=== PATIENT | female | born 1950 | race Caucasian/White ===

== ENCOUNTER → 2017-12-22 | Outpatient (CLI) | payer OTHER, BC ==
[~2017-12-22] MED LIST: ALLEGRA60 MG PO; ATROVENT30 ML NS; BETIMOL 0.0.25 %/11 OP; CARBAMAZEPINE200 M2 PO; GABAPENTIN100 MG PO; IBUPROFEN 200200 M1 PO; LITHIUM CARBON300 M6 PO; MULTIVITAMINS1 EAC7 PO; NASONEX17 GM NS; NEURONTIN 300300 M1 PO; OMEPRAZOLE40 MG PO; PROPRANOLOL 20M20 M1 PO; SALINE NASAL; SERTRALINE HCL100 MG PO; SINGULAIR 10 MG10 M1 PO
== END ==
LOC: HYPER 07:00
DX: L89.152 Pressure ulcer of sacral region, stage 2 (principal); R60.0 Localized edema; R21 Rash and other nonspecific skin eruption; F31.9 Bipolar disorder, unspecified; K21.9 Gastro-esophageal reflux disease without esophagitis; I10 Essential (primary) hypertension; M19.90 Unspecified osteoarthritis, unspecified site; Z12.83 Encounter for screening for malignant neoplasm of skin

== ENCOUNTER → 2018-01-12 | Outpatient (CLI) | payer OTHER, BC | LOC: HYPER 06:48 | DX: L89.152 Pressure ulcer of sacral region, stage 2 (principal); L84 Corns and callosities; I10 Essential (primary) hypertension; R21 Rash and other nonspecific skin eruption; L03.115 Cellulitis of right lower limb; K21.9 Gastro-esophageal reflux disease without esophagitis; M19.90 Unspecified osteoarthritis, unspecified site; G62.9 Polyneuropathy, unspecified; F31.9 Bipolar disorder, unspecified ==

== ENCOUNTER 2018-09-27 06:50 | Inpatient (IN) | payer OTHER, BC ==
[~2018-09-27] VITALS: Ht 167.6 cm; Wt 53.5 kg
[2018-09-27 12:36] VITALS: BP 152/74
[2018-09-27 13:55] LABS: ABSOLUTE NEUTROPHILS 3.3 thou/uL (1.4-8.2); BASOPHILS 1.2 % (0.0-2.0); EOSINOPHILS 0.9 % (0.0-3.0); HEMATOCRIT 32.6 % (37.0-47.0); HEMOGLOBIN 10.9 gm/dL (12.0-15.0); LYMPHOCYTES 25.8 % (24.0-44.0); MCH 31.8 pg (26.0-34.0); MCHC 33.3 g/dL (28.0-37.0); MCV 95.6 fL (80.0-100.0); MONOCYTES 7.6 % (1.0-8.0); PLATELET COUNT 222 thou/uL (150-400); POLYS 64.5 % (36.0-66.0); RBC 3.41 mil/uL (4.20-5.00); RDW 14.3 % (10.5-14.5); WBC 5.1 thou/uL (4.0-11.0)
[2018-09-27 14:16] LABS: ALBUMIN 3.4 g/dL (3.4-5.0); CALCIUM 9.1 mg/dL (8.5-10.1); CREATININE 1.1 mg/dL (0.6-1.0); TOTAL BILIRUBIN 0.4 mg/dL (<0.1-1.0); TOTAL PROTEIN 6.4 g/dL (6.4-8.2)
[2018-09-27] MEDS ORDERED: LATANOPROST 0.2.5 ML OPHTHALMIC (14:37)
[2018-09-27] MEDS ORDERED: ALLEGRA ALLERG180 MG PO (14:40)
[2018-09-27] MEDS ORDERED: AYR SALINE NASA14 GM TOP (14:46)
[2018-09-27] MEDS ORDERED: DOXYCYCLINE 10100 MG PO (14:49)
--- NOTE | 2018-09-27 15:35 | NUR ---
WOUND FOLLOW UP: PT. WAS SEEN TODAY BY DR. CABRERA AND MYSELF. PT. WAS A DIRECT ADMIT FROM THE WOUND CLINIC IN RELATION TO CELLULITIS OF THE RIGHT LEG WITH A ULCERATION. RECOMMENDATIONS: AMMONIUM LACATE LOTION TO BILATERAL LOWER EXTREMTIYS GENTAMYCIN TO ULCERATION, THEN XEROFORM, ABD, SECURE WITH KERLIX AND DANIELLE FROM TOES TO KNEE, COMPLETE CARES DAILY AND PRN. PT. AND STAFF NURSE WERE INSTRUCTED ON PLAN OF CARE.
--- NOTE | 2018-09-27 19:32 | NUR ---
PT ARRIVED ON UNIT FROM PHYSICIAN'S OFFICE. PT ADMISSION COMPLETE, EXTERNAL CATHETER PLACED, ORDERS IMPLEMENTED. PT RESTING COMFORTABLY.
[2018-09-27 19:40] VITALS: BP 155/73
[2018-09-27 23:39] VITALS: BP 130/66
[2018-09-28 04:05] VITALS: BP 133/62
[2018-09-28 07:16] VITALS: BP 144/77
--- NOTE | 2018-09-28 07:38 | NUR ---
PATIENT WAS IN BEDREST DURING THE SHIFT AND SLEPT PART OF THE NIGHT. RIGHT LOWER EXTREMITY WOUND WAS PICTURED AND NEW DRESSING APPLIED. PATIENT DID NOT REQUEST ANY PAIN MEDS DURING THE SHIFT. PRN ATIVAN WAS USED X1 FOR ANXIETY. ABX TREATMENT CONTINUED. PATIENT IS AOX4 AND IS PROGRESSING TOWARDS DISCHARGE GOALS.
--- NOTE | 2018-09-28 13:55 | NUR ---
PT ADMITTED RELATED TO RIGHT LEG INFECTION. CM REVIEWED CHART AND SPOKE WITH CARE TEAM. CM MET WITH PT AND SISTER CHRISTINE AT BEDSIDE THIS DAY. PT IS A&O X4. CM ROLE INTRODUED. PT INDICATED SHE LIVES AT [facility]. SHE INDICATED THAT SHE HAD USED A MANUAL WHEELCHAIR TO ASSIST WITH MOBILITY. PT INDICATED SHE HAS A TRANSFER POLE THAT SHE USES TO GET IN AND OUT OF HER BED AND WC AND GRAB BARS THAT SHE USES IN THE BATHROOM. PT HAD BEEN ON SERVICE WITH [facility] AND THAT THEY WOULD LIKE TO USE THEM AGAIN UPON DC. CM TO FOLLOW INDICATED WITH DC PLANNING.
--- NOTE | 2018-09-28 14:46 | NUR ---
WOUND FOLLOW UP: PT. WAS SEEN TODAY BY DR. CABRERA AND MYSELF. PT. WOUND IS CLINICALLY BETTER TODAY. PT. IS PROGRESSING TOWARDS HEALING AT THIS TIME. RECOMMENDATIONS: CONTINUE WITH CURRENT PLAN OF CARE. PT. AND STAFF NURSE WERE INSTRUCTED ON PLAN OF CARE.
[2018-09-28 15:38] VITALS: BP 122/59
[2018-09-28 17:21] LABS: URINE BILIRUBIN NEGATIVE (Negative); URINE BLOOD NEGATIVE (Negative); URINE CLARITY CLEAR; URINE COLOR YELLOW; URINE GLUCOSE-RANDOM* NEGATIVE (Negative); URINE KETONES NEGATIVE (Negative); URINE LEUKOCYTES-REFLEX NEGATIVE (Negative); URINE NITRITE-REFLEX NEGATIVE (Negative); URINE PROTEIN (DIPSTICK) NEGATIVE (Negative); URINE UROBILINOGEN 0.2 E.U./dl (0.2-1.0)
--- NOTE | 2018-09-28 18:30 | NUR ---
PT STABLE THROUGHOUT SHIFT. PT HAD NO COMPLAINTS. FAMILY AT BEDSIDE. PT RESTING COMFORTABLY.
[2018-09-28 20:01] VITALS: BP 115/55
[2018-09-29 02:56] LABS: HEMATOCRIT 30.1 % (37.0-47.0); MCH 31.6 pg (26.0-34.0); MCHC 33.3 g/dL (28.0-37.0); MCV 94.8 fL (80.0-100.0); RBC 3.17 mil/uL (4.20-5.00); RDW 14.3 % (10.5-14.5); WBC 5.2 thou/uL (4.0-11.0)
[2018-09-29 03:04] LABS: CALCIUM 8.7 mg/dL (8.5-10.1); CREATININE 0.9 mg/dL (0.6-1.0); POTASSIUM 4.3 mmol/L (3.5-5.1)
[2018-09-29 04:17] VITALS: BP 130/66
[2018-09-29 07:34] VITALS: BP 142/64
--- NOTE | 2018-09-29 07:40 | NUR ---
PROGRESS PT ADMITTED FOR RIGHT LEG INFECTION, IV VANCOMYCIN CONTINUES DOSE ADJUSTED TO 100GMS FROM 750 MG DUE TO LOW TROUGH LEVEL. DENIES PAIN, ASSISTS IN REPOSITIONONG SELF, PT IS A PARAPLEGIC D/T TBI, HAS CONTRACTURES, ABLE TO PERFORM SOME TAKS INDEPENDENTLY BUT NEEDS ASSIST WITH MOST ADL'S. FEMALE CATHETER IN PLACE WORKING WELL. CONTINUE POC.
--- NOTE | 2018-09-29 13:18 | NUR ---
TOWARDS POC PT A/O X4, VSS, AFEBRILE, DENIES PAIN. WOUND CARE AND DRESSING DONE. NEW IV INSERTED. NO CONCERNS VOICED. WILL CONTINUE TO MONITOR.
[2018-09-29 14:32] VITALS: BP 129/58
--- NOTE | 2018-09-29 15:23 | NUR ---
DISCHARGE PLANNING. PATIENT RESIDES AT [facility]. DISCHARGE PLAN IS FOR PATIENT TO RETURN TO [facility]. UPDATED CLINICAL INFORMATION FAXED TO [facility]. [facility] NOTIFIED OF PATIENTS PLAN FOR DISCHARGE TOMORRW. FOLLOWING TO ASSIST WITH DISCHARGE NEEDS. UNIT CM/CASSIE AWARE.
--- NOTE | 2018-09-29 16:01 | NUR ---
WOUND FOLLOW UP: PT. WAS SEEN TODAY BY DR. CABRERA AND MYSELF. PT. WOUND IS CLINICALLY BETTER AND HER CELLULITIS TO HER RIGHT LEG IS GREATLY IMPROVED. RECOMMENDATIONS: CONTINUE WITH CURRENT PLAN OF CARE. PT. AND STAFF NURSE WERE INSTRUCTED ON PLAN OF CARE.
[2018-09-29 16:46] VITALS: BP 129/58
[2018-09-29 19:54] VITALS: BP 121/61
[2018-09-30 03:55] VITALS: BP 137/64
[2018-09-30 07:42] VITALS: BP 154/66
--- NOTE | 2018-09-30 07:58 | NUR ---
progress pt slept most of shift, denied pain. repositioned self with encouragement. iv antibiotics transitioned to po.iv sl continue poc.
[2018-09-30] MEDS ORDERED: LINEZOLID600 MG PO (12:25)
--- NOTE | 2018-09-30 12:48 | NUR ---
TOWARDS POC PT A/O X4, VSS, AFEBRILE, WOUND CARE AND DRESSING DONE. PT IS FOR DC. IV DC'D. DC ENVELOPE PROVIDED. PT IS WAITING FOR TRANSPO BACK TO FACILITY.
[2018-09-30 12:56] VITALS: BP 129/58
[2018-09-30 13:04] VITALS: BP 129/58
--- NOTE | 2018-09-30 13:19 | NUR ---
WOUND FOLLOW UP: PT. WAS SEEN TODAY BY DR. CABRERA AND MYSELF. PT. WOUND CARE WAS COMPLETED BY THE WOUND CARE TEAM. PT. WAS IN GOOD SPIRITS THIS VISIT AND DISCHARGE PLANNING WAS DISCUSSED. RECOMMENDATIONS: CONTINUE WITH CURRENT PLAN OF CARE. PT. AND STAFF NURSE WERE INSTRUCTED ON PLAN OF CARE.
--- NOTE | 2018-09-30 13:47 | NUR ---
CARE TEAM INDICATED THAT PT IS MEDICALLY STABLE TO DICHARGE CK TO [facility] THIS DAY. PT AND SISTER ARE AWARE AND AGREEABLE. PT'S SISTER SPOKE WITH THE FACILITY AND THEY ARE GOING TO PICK PT UP IN HER WHEELCHAIR WHICH SHE HAD HER AND TRANSPORT HER BACK TO THE FACILITY BEFORE 1400 THIS DAY. ORDERS ARE TO BE FAXED TO [facility]. CHART COPY MADE. REPORT TO BE CALLED TO . NO OTHER CM INTERVENTION INDICATED AT THIS TIME. CASE CLOSED.
--- NOTE | 2018-10-05 09:54 | HC ---
[facility] [place] [address] CONSULTATION Name: JENNIFERSveta ANIBAL Room #: 455-P [facility] IN M.R.#: [id number] Admission: 09/27/18 ������������������ Attend Phys: Romulo Arce MD Discharge: 09/30/18 ������������������ Date of : 48 Report #: [id number] THIS REPORT FOR: //name// CC: Maykel Ivey DATE OF SERVICE: 09/27/2018 CHIEF COMPLAINT: Traumatic wound and wound infection, cellulitis of the right lower extremity. HISTORY OF PRESENT ILLNESS: This is a 68-year-old female patient with whom I am familiar from evaluation in the clinic. She sustained a traumatic injury to her right leg a week or so ago. She has developed a cellulitis and wound infection with increasing drainage. She has been on antibiotics as an outpatient and has been worsening despite this. It was felt that more aggressive intervention for both wound care and antibiotic therapy was required, has been admitted to the hospital. She is complaining of pain in that area. PAST MEDICAL HISTORY: Positive for history of traumatic brain injury and some left-sided weakness that was related to a suicide attempt approximately 30 years ago. She has had previous hysterectomy and tonsillectomy. She is wheelchair bound. SOCIAL HISTORY: Negative for alcohol or tobacco use. FAMILY HISTORY: Noncontributory. MEDICATIONS: Include Advil, latanoprost, Cathie, [place] gel, doxycycline, carbamazepine and sertraline, as well as gabapentin. ALLERGIES: No known drug allergies. REVIEW OF SYSTEMS: CONSTITUTIONAL: The patient denies fever, chills or weight loss. NEUROLOGICAL: The patient has left-sided persistent weakness. No new weakness, numbness or tingling. EYES: The patient denies visual changes, redness or drainage. ENT: The patient denies earache, nasal drainage or sore throat. CARDIOVASCULAR: The patient denies chest pain, palpitations, diaphoresis. PULMONARY: The patient denies cough or shortness breath. GASTROINTESTINAL: The patient denies nausea, vomiting or abdominal pain. ORTHOPEDIC: The patient denies pain, swelling, drainage and wound on her right lower leg. [address] [address] CONSULTATION Name: Sveta RODRIGUEZ Room #: 455-P [facility] IN M.R.#: [id number] Admission: 09/27/18 ������������������ Attend Phys: Romulo Arce MD Discharge: 09/30/18 ������������������ Date of : 48 Report #: [id number] Other systems in a 14-point review of systems are negative. PHYSICAL EXAMINATION: VITAL SIGNS: At this time include temperature 36.9, pulse 64, respiratory rate 16, blood pressure 132/74. GENERAL: This is a chronically ill-appearing male patient who appears to be in minimal distress. HEENT: Head normocephalic. Nose and throat are clear. NECK: Demonstrates general weakness and she has difficulty holding her head up. LUNGS: Clear. HEART: Regular rhythm. ABDOMEN: Soft. Bowel sounds present. EXTREMITIES: demonstrate palpable distal pulses. She has 2+ edema to the extremities bilaterally. She has a traumatic wound to the right lateral lower leg. There is significant drainage from the wounds. Slight odor. There is significant lanny-wound cellulitis as well with moderate tenderness. NEUROLOGIC: The patient has left-sided weakness. Otherwise, alert and appropriate. LABORATORY DATA: Includes sodium 142, potassium 4.0, chloride 107, CO2 27, BUN 27, creatinine 1.1, glucose is 165. White blood cell count is 5.1 with a hemoglobin of 10.9, hematocrit 32.6. Sed rate is 4. IMAGING DATA: Ultrasound of the lower extremities demonstrates monophasic inflow waveforms to suggest pelvic or distal aortic stenosis. CLINICAL IMPRESSION: 1. Traumatic wound to the right lower extremity. 2. Wound infection and cellulitis, right lower extremity. 3. Possible peripheral arterial disease with iliac disease or distal aortic stenosis. RECOMMENDATIONS: At this point in time, the patient will be started on intravenous vancomycin empirically. We will recommend new culture and sensitivity. We will have to use topical gentamicin, Xeroform to the open area. Gentle compression with Kerlix and Sai wrap, as well as elevation. The patient has had vascular evaluation by Dr. Reynoso [facility] within the last year. We will try to obtain report of this. The patient and family do not wish to have further vascular intervention at this time. We will certainly continue to see how she does clinically. Should there be improvement in the wound and the infectious process with local care, we can hold off on any further vascular intervention. However, if there is no improvement or worsening of the [address] [address] CONSULTATION Name: Sveta RODRIGUEZ Room #: 455-P [facility] IN M.R.#: [id number] Admission: 09/27/18 ������������������ Attend Phys: Romulo Arce MD Discharge: 09/30/18 ������������������ Date of : 48 Report #: [id number] condition, we may need to intervene to establish better flow. I appreciate being asked to see her in consultation. ��������������������������������������������� <ELECTRONICALLY SIGNED> ���������������������������������������� By: Romulo Arce MD ��������������������������������������������� 10/05/18 [id number] Romulo Arce MD /nt
--- NOTE | 2018-10-06 11:56 | HC ---
[facility] [place] [address] CONSULTATION Name: JENNIFERSveta ANIBAL Room #: 455-P [facility] IN M.R.#: [id number] Admission: 09/27/18 ������������������ Attend Phys: Romulo Arce MD Discharge: 09/30/18 ������������������ Date of : 48 Report #: [id number] THIS REPORT FOR: //name// CC: Maykel Ivey DATE OF SERVICE: 09/29/2018 INFECTIOUS DISEASE CONSULTATION: REASON FOR CONSULTATION: I was asked to evaluate concerning right lower extremity wound infection. HISTORY OF PRESENT ILLNESS: The patient was a 68-year-old with paraparesis following traumatic brain injury. She has most left-sided weakness. She has been wheelchair bound for approximately 3 years. She is able to stand and pivot; however. Four weeks ago, had a laceration to her right calf having hit her leg on her wheelchair. About 10 days ago, developed increased pain, swelling and erythema. Treated initially with doxycycline when cultures revealed MRSA. Did not improve and now hospitalized for further care. Was admitted on 09/27/2018, placed on vancomycin. She has shown significant improvement. In addition, she has been treated for lymphedema. Arterial studies showed evidence of proximal inflow disease. This has not been further evaluated. No fever, chills or sweats. Overall, she feels better than her admit. REVIEW OF SYSTEMS: Denies any headache, cough, sputum, nausea, vomiting or diarrhea. A 10-point review was negative other than what is described above. ALLERGIES: No known medications. MEDICATIONS: As noted on her MAR including vancomycin. PAST MEDICAL HISTORY: Post-suicide attempt, anoxic brain injury 30 years ago. Left-sided weakness, peripheral edema with chronic lymphedema, mostly on the right, hysterectomy, breast lumpectomy, tonsillectomy. FAMILY HISTORY: Noncontributory. SOCIAL HISTORY: Nonsmoker, no significant alcohol intake. PHYSICAL EXAMINATION: VITAL SIGNS: She is afebrile and hemodynamically stable. GENERAL: She is alert and cooperative and pleasant, in no acute distress. She was very thin. [facility] [address] [place] [address] CONSULTATION Name: Sveta RODRIGUEZ Room #: 455-P [facility] IN M.R.#: [id number] Admission: 09/27/18 ������������������ Attend Phys: Romulo Arce MD Discharge: 09/30/18 ������������������ Date of : 48 Report #: [id number] EYES: Without scleral icterus. MOUTH: Without mucositis. NECK: Supple. LUNGS: Clear. HEART: Regular, without murmur. ABDOMEN: Soft and nontender with no hepatosplenomegaly or mass appreciated. EXTREMITIES: With no clubbing, cyanosis. 1+ edema in the right lower extremity with trace in the left. She had a wound to the lateral posterior aspect of her right calf with associated cellulitis. There was a shallow depth to the wound. There was no fluctuance. There was no mass appreciated. She had palpable pulses 1+ in her feet. Cranial nerves were intact. She had weakness in both lower extremities, greatest on the left. Sensation was intact. LABORATORY STUDIES: Hemoglobin 10, WBC 5, platelet count 199,000. Creatinine 0.9, alkaline phosphatase 133. Liver function test normal. Urinalysis negative. Sedimentation rate 4, CRP 7. Ultrasound of lower extremities as noted above. IMPRESSION: 1. A 68-year-old with paraparesis and methicillin-resistant Staphylococcus aureus right posterolateral calf wound infection and cellulitis, showing improvement with 3 days of IV antibiotic therapy and edema control. 2. Chronic lymphedema. 3. Peripheral vascular disease, suspect aortic or proximal vessel occlusive disease. 4. Traumatic brain injury. RECOMMENDATION: We will start Zyvox for 1 week. Continue with edema control and wound care. Check CT angio to further evaluate her arterial obstructive disease. ��������������������������������������������� <ELECTRONICALLY SIGNED> ���������������������������������������� By: José Antonio Becerra MD ��������������������������������������������� 10/06/18 [id number] [id number] José Antonio Becerra MD /nt
== END 2018-09-30 13:57 | disposition home health service (06) | DRG 603 ==
LOC: HYPER 06:50 → 4W 11:22 → HYPER 09-30 16:34
PROVIDERS: Hospitalist; Nurse Practitioner; ADMIT Hospitalist
DX: L03.115 Cellulitis of right lower limb (principal); G82.20 Paraplegia, unspecified; B95.62 Methicillin resistant Staphylococcus aureus infection as the cause of diseases classified elsewhere; I73.9 Peripheral vascular disease, unspecified; I89.0 Lymphedema, not elsewhere classified; F41.9 Anxiety disorder, unspecified; J30.2 Other seasonal allergic rhinitis; Z66 Do not resuscitate; Z87.820 Personal history of traumatic brain injury; Z90.710 Acquired absence of both cervix and uterus; Z79.899 Other long term (current) drug therapy
CPT/HCPCS: 10047

== ENCOUNTER → 2018-10-13 | Outpatient (CLI) | payer OTHER, BC ==
[~2018-10-13] MED LIST changes: +ALLEGRA ALLERG180 MG PO; +AYR SALINE NASA14 GM TOP; +DOXYCYCLINE 10100 MG PO; +LATANOPROST 0.2.5 ML OPHTHALMIC; +LINEZOLID600 MG PO
== END ==
LOC: HYPER 06:59
DX: S81.811D Laceration without foreign body, right lower leg, subsequent encounter (principal); R60.0 Localized edema; L03.115 Cellulitis of right lower limb; R21 Rash and other nonspecific skin eruption; G62.9 Polyneuropathy, unspecified; H40.9 Unspecified glaucoma; I10 Essential (primary) hypertension; K21.9 Gastro-esophageal reflux disease without esophagitis; M19.90 Unspecified osteoarthritis, unspecified site; F31.9 Bipolar disorder, unspecified; F41.9 Anxiety disorder, unspecified; Z12.83 Encounter for screening for malignant neoplasm of skin; X58.XXXD Exposure to other specified factors, subsequent encounter

== ENCOUNTER → 2018-11-03 | Outpatient (CLI) | payer OTHER, BC | LOC: HYPER 06:52 | DX: S81.811D Laceration without foreign body, right lower leg, subsequent encounter (principal); I10 Essential (primary) hypertension; R21 Rash and other nonspecific skin eruption; R60.0 Localized edema; K21.9 Gastro-esophageal reflux disease without esophagitis; M19.90 Unspecified osteoarthritis, unspecified site; G81.90 Hemiplegia, unspecified affecting unspecified side; G62.9 Polyneuropathy, unspecified; F41.9 Anxiety disorder, unspecified; F31.9 Bipolar disorder, unspecified; Z12.83 Encounter for screening for malignant neoplasm of skin; Z91.81 History of falling; X58.XXXD Exposure to other specified factors, subsequent encounter ==

== ENCOUNTER → 2018-11-17 | Outpatient (CLI) | payer OTHER, BC | LOC: HYPER 06:40 | DX: S81.811D Laceration without foreign body, right lower leg, subsequent encounter (principal); S60.522A Blister (nonthermal) of left hand, initial encounter; R60.0 Localized edema; H40.9 Unspecified glaucoma; I10 Essential (primary) hypertension; K21.9 Gastro-esophageal reflux disease without esophagitis; M19.90 Unspecified osteoarthritis, unspecified site; F31.9 Bipolar disorder, unspecified; X58.XXXA Exposure to other specified factors, initial encounter; Y93.89 Activity, other specified; Y92.89 Other specified places as the place of occurrence of the external cause; Y99.8 Other external cause status ==

== ENCOUNTER → 2018-12-10 | Outpatient (CLI) | payer OTHER, BC | LOC: HYPER 08:09 | DX: S81.811D Laceration without foreign body, right lower leg, subsequent encounter (principal); S60.5 Other superficial injuries of hand; I10 Essential (primary) hypertension; K21.9 Gastro-esophageal reflux disease without esophagitis; M19.90 Unspecified osteoarthritis, unspecified site; G81.90 Hemiplegia, unspecified affecting unspecified side; G62.9 Polyneuropathy, unspecified; R60.0 Localized edema; F41.9 Anxiety disorder, unspecified; F31.9 Bipolar disorder, unspecified; Z12.83 Encounter for screening for malignant neoplasm of skin; Z91.81 History of falling; X58.XXXD Exposure to other specified factors, subsequent encounter ==